=== PATIENT | female | born 1960 | race Caucasian/White ===

== ENCOUNTER 2023-06-06 18:42 | Emergency (ER) | payer OTHER ==
[~2023-06-06] VITALS: Ht 154.9 cm; Wt 58.1 kg
[2023-06-06 19:24] VITALS: BP_SYST 180; PULSE 101; RESP 16; TEMP 97.7; O2SAT 98
[2023-06-06] MEDS ORDERED: IBUP-1969 PO (20:37)
[2023-06-06 20:54] VITALS: BP_SYST 193; PULSE 93; RESP 12; TEMP 97.7; O2SAT 99
== END 2023-06-06 20:54 | disposition home or self-care (01) ==
LOC: SED 18:42
DX: S43.401A Unspecified sprain of right shoulder joint, initial encounter (principal); S00.83XA Contusion of other part of head, initial encounter; S80.211A Abrasion, right knee, initial encounter; I10 Essential (primary) hypertension; Z88.5 Allergy status to narcotic agent; Z79.899 Other long term (current) drug therapy; W01.0XXA Fall on same level from slipping, tripping and stumbling without subsequent striking against object, initial encounter; Y93.89 Activity, other specified; Y92.89 Other specified places as the place of occurrence of the external cause; Y99.8 Other external cause status
CPT/HCPCS: 73030; 99283